=== PATIENT | female | born 1980 | race African-American/Black ===

== ENCOUNTER 2019-08-25 00:20 | Emergency (ER) | payer MEDICAID, OTHER ==
[~2019-08-25] VITALS: Ht 165.1 cm; Wt 55.0 kg
[2019-08-25] MEDS ORDERED: HYDROCODONE/ACETAMINOPHEN 5/325MG TABLET PO ONE (02:15)
[2019-08-25 02:33] VITALS: BP 120/71
== END 2019-08-25 02:34 | disposition home or self-care (01) ==
LOC: ER 00:48
DX: K04.7 Periapical abscess without sinus (principal); R68.84 Jaw pain
CPT/HCPCS: 99283